=== PATIENT | male | born 1975 | race Caucasian/White ===

== ENCOUNTER 2022-10-03 09:00 | Emergency (ER) | payer OTHER, SELFPAY ==
--- NOTE | ~2022-10-03 | XR_ITS ---
EXAMINATION: XR chest 2V DATE: 10/03/2022 09:59 INDICATION: Cough and congestion. TECHNIQUE: Frontal and lateral views of the chest were obtained. COMPARISON: None. FINDINGS: There is mild atelectasis in the lower lung zones. No pleural effusion or pneumothorax. The heart size is normal. IMPRESSION: 1. Mild atelectasis in the lower lung zones. Reviewed, dictated and finalized at location A.
--- NOTE | 2022-10-03 09:15 | ED.EAR ---
HPI - Ear Problem General Chief complaint: Upper Respiratory Infection Stated complaint: rt ear discomfort,sinus pressure Source: patient Mode of arrival: ambulatory Limitations: no limitations History of Present Illness HPI Narrative: Patient is a 47-year-old male that presents with right ear pain/fullness, congestion, cough since Saturday. Patient states he had a primary care provider appointment and they palpated his salivary stone causing symptoms start. Patient also reports chronic chest pain for 3 weeks, has a cardiology appointment on Saturday. Reports he feels like he has wheezing at the end of his exhale. Reports fever chills and 1 episode of vomiting on Saturday. Has had productive cough with green/yellow/bloody mucus. Denies shortness of breath unless having a coughing fit. Related Data Home Medications Medication Instructions Recorded Confirmed cetirizine 10 mg tablet mg 10/03/22 clindamycin phosphate 1 % lotion topical 10/03/22 gabapentin 600 mg tablet mg 10/03/22 lisinopril 10 mg tablet mg 10/03/22 selenium sulfide 2.5 % lotion topical 10/03/22 testosterone cypionate 200 mg/mL mg 10/03/22 intramuscular oil zolpidem 12.5 mg tablet,extended mg PO 10/03/22 release,multiphase Allergies Allergy/AdvReac Type Severity Reaction Status Date / Time No Known Allergies Allergy Unknown Uncoded 10/03/22 09:26 Review of Systems Review of Systems: All systems reviewed & are unremarkable except as noted in HPI and below Constitutional: Constitutional: Denies body ache(s), Reports chills, Denies fatigue, Reports fever(s), Denies headache(s), Denies malaise and Denies weakness Eyes: Eyes: Denies blurry vision, Denies itchy eyes and Denies loss of vision ENT: Reports otalgia, Denies headache(s), Reports nasal congestion, Reports sinus pain, Reports sinus pressure and Denies sore throat Cardiovascular: Cardiovascular: Denies chest pain, Denies irregular heart rhythm and Denies dyspnea Respiratory: Respiratory: Reports chest congestion, Reports cough, Reports pain with cough and Denies dyspnea Gastrointestinal: Gastrointestinal: Denies abdominal pain, Denies diarrhea, Denies nausea and Reports vomiting Musculoskeletal: Musculoskeletal: Denies back pain, Denies myalgias and Denies arthralgias Integumentary/Breasts: Skin/Breast: Denies pruritus and Denies rash Neurologic: Denies headache(s), Denies loss of vision and Denies weakness Psychiatric: Psychiatric: Reports no additional psychiatric complaints Endocrine: Endocrine: Denies fatigue Allergic/Immunologic: Allergic/Immunologic: Denies itchy eyes PMFSH Comments At time of signature, agree with nursing past medical, surgical, social and family history. There is no relevant family history pertinent to the presenting complaint. Exam Const: General: cooperative, healthy appearing, comfortable, no acute distress and well nourished Nutritional Appearance: well nourished Orientation/consciousness: patient oriented x3 Limitations: no limitations HENMT: Head: normal to inspection, normocephalic and atraumatic Ears: hearing grossly normal bilaterally, external ears normal, TM's normal bilaterally, EAC's normal and no periauricular adenopathy Face/Nose/Sinus: Normal external nose present, Abnormal mucous membranes and turbinates present erythematous bilateral and diffuse, normal facial exam, sinuses nontender and face symmetric Face and sinus: normal facial exam, sinuses nontender and face symmetric Mouth: Yes Normal oral and palatal mucosa present, Yes lip normal, Yes tongue normal, Yes oropharynx normal, Yes moist mucous membranes and Yes Abnormal salivary glands and ducts right Coleman's (submandibular) mass hard and fixed Teeth and gingiva: dentition normal Throat: tonsils normal, uvula midline, posterior oropharynx abnormal erythema and postnasal drainage Eyes: General: appearance normal, both eyes and all related structures Alignment and Position: alignmen
[2022-10-03 09:24] VITALS: BP 146/85; PULSE 102; RESP 16; TEMP 37.3; O2SAT 98
== END 2022-10-03 10:28 | disposition home or self-care (01) ==
PROVIDERS: Emergency Provider Nurse Practitioner Family
DX: J06.9 Acute upper respiratory infection, unspecified (principal); R05.9 Cough, unspecified; M94.0 Chondrocostal junction syndrome [Tietze]
CPT/HCPCS: 71046; 99213; G0463

== ENCOUNTER → 2022-11-13 10:53 | Outpatient (CLI) | payer OTHER, SELFPAY ==
--- NOTE | ~2022-11-13 | MR_ITS ---
EXAMINATION: MR thoracic spine wo con DATE: 11/13/2022 11:33 INDICATION: Chronic low back pain. Degenerative disc disease. TECHNIQUE: Magnetic resonance imaging (MRI) of the thoracic spine was performed without intravenous c ontrast. COMPARISON: None FINDINGS: There is 3 degrees dextrocurvature of thoracic spine. There is mild chronic anterior wedgin g of T5 vertebral body. There are Schmorl's nodes from T5-T6 through T12-L1. There is mildly decrease d disc height at T5-T6 and T6-T7. At T5-T6, there is a right central protrusion with mild central can al stenosis. At T11-T12, there is a central protrusion. There is multilevel facet joint osteoarthriti s, severe bilaterally at T4-T5. On the right, there is mild neural foraminal stenosis at T4-T5 and T8 -T9. On the left, there is mild neural foraminal stenosis at T4-T5. The spinal cord signal intensity is normal. IMPRESSION: 1. Mild thoracic spondylosis. Reviewed, dictated and finalized at location A.
== END ==
DX: M54.6 Pain in thoracic spine (principal); M43.04 Spondylolysis, thoracic region
CPT/HCPCS: 72146

== ENCOUNTER 2023-07-17 12:24 | Emergency (ER) | payer OTHER, SELFPAY ==
--- NOTE | 2023-07-17 12:27 | ED.URI ---
HPI - URI/Sore Throat General Chief Complaint: Upper Respiratory Infection Stated Complaint: Cough , Asthma Attack, Dizzy, Light Headed Time Seen by Provider: 07/17/23 12:27 Source: patient Mode of arrival: ambulatory Limitations: no limitations History of Present Illness HPI Narrative: Cruzito is a 48-year-old male patient presenting to the clinic today with complaints of cough, dizziness, wheezing, and lightheadedness x1.5 weeks. He reports he is coughing so hard at times that is causing him to be short of breath and lightheaded. States he is having some clear nasal drainage. Denies any fever or chills. Reports that his children have been sick with colds for the past couple weeks. History of asthma. MD elicited complaint: sore throat and nasal congestion Related Data Home Medications Medication Instructions Recorded Confirmed cetirizine 10 mg tablet 10 mg PO DAILY 10/03/22 07/17/23 lisinopril 10 mg tablet 10 mg PO DAILY 10/03/22 07/17/23 testosterone cypionate 200 mg/mL 200 mg IM WEEKLY 10/03/22 07/17/23 intramuscular oil zolpidem 12.5 mg tablet,extended 12.5 mg PO DAILY 10/03/22 07/17/23 release,multiphase albuterol sulfate 90 mcg/actuation 2 puff inhalation PRN PRN 07/17/23 07/17/23 aerosol inhaler Shortness Of Breath Or Wheezing budesonide 160 mcg-glycopyr 9 2 inh inhalation DAILY 07/17/23 07/17/23 mcg-formot 4.8 mcg/actuation HFA inhaler ([employer]) duloxetine 60 mg capsule,delayed 60 mg PO DAILY 07/17/23 07/17/23 release eszopiclone 3 mg tablet 3 mg PO DAILY 07/17/23 07/17/23 montelukast 10 mg tablet 10 mg PO HS 07/17/23 07/17/23 Allergies Allergy/AdvReac Type Severity Reaction Status Date / Time No Known Allergies Allergy Unknown Uncoded 07/17/23 12:26 Review of Systems Review of Systems: Pertinent positives per HPI. Patient denies any fever, chills, rash, headache, visual changes, chest pain, palpitations, nausea, vomiting, diarrhea, constipation, abdominal pain, or any urinary issues. PMFSH Comments At the time of my signature, I reviewed and agree with the nursing past medical, surgical, social, and family history. There is no relevant family history pertinent to the patient complaint. Exam Narrative: General: Well-developed, obese, in no apparent distress Head: Normocephalic, atraumatic Eyes: Pupils equally round and reactive to light bilaterally, EOM intact, sclera and conjunctive clear, no discharge, lids normal Ears: TMs intact and congested, ear canals clear, no drainage, grossly hearing normal. Nose: Nares patent, clear nasal discharge, mild inflammation, no sinus tenderness. Mouth: Oral pharynx without lesions or masses, good dentition, MMM. Neck: Supple, trachea midline, no enlargement of anterior or posterior cervical nodes, no thyroid masses or goiter palpable. Cardio: Regular rate and rhythm, s1 and s2 normal, no murmur appreciated. Resp: Clear to auscultation bilaterally, no rhonchi, rales, wheezing or rubs Course Course Emergency Course: Portions of this record may have been created with voice recognition software. Level of Care: Express Care Visit Vital Signs Vital signs: Vital signs reviewed MDM - URI/Sore Throat MDM Narrative Medical decision making narrative: At the time of visit patient is resting comfortably on the exam table. Patient appears to be nontoxic. I suspect patient has acute bronchitis. Prescription for prednisone was sent to the pharmacy. Supportive measures were discussed with the patient and they voiced understanding discharge instructions and agrees to treatment plan. Return precautions reviewed Differential Diagnosis Differential diagnosis: Likely upper respiratory infection, otitis media, sinusitis, viral infection, bronchitis, influenza, pharyngitis and other (COVID) Discharge Plan Discharge Clinical Impression: Bronchitis Patient Disposition: Home, Self-Care Condition: Stable Instructions: Antibio
[2023-07-17 12:32] VITALS: BP 134/88; PULSE 95; RESP 18; TEMP 36.7; O2SAT 97
== END 2023-07-17 12:42 | disposition home or self-care (01) ==
PROVIDERS: Emergency Provider Nurse Practitioner Family
DX: J40 Bronchitis, not specified as acute or chronic (principal); I10 Essential (primary) hypertension; J45.909 Unspecified asthma, uncomplicated
CPT/HCPCS: 99213; G0463

== ENCOUNTER 2023-09-28 10:18 | Emergency (ER) | payer OTHER, SELFPAY ==
--- NOTE | 2023-09-28 10:36 | ED.URI ---
HPI - URI/Sore Throat General Chief Complaint: Upper Respiratory Infection Stated Complaint: Rt Ear Irritation,Sore Throat,Congestion Time Seen by Provider: 09/28/23 10:35 Source: patient, RN notes reviewed and old records reviewed Mode of arrival: ambulatory Limitations: no limitations History of Present Illness HPI Narrative: 48-year-old male presents to the [facility] with a sore throat and right ear pain since Saturday. Has had sinus congestion. Has multiple kids at home positive for strep Onset (ago): day(s) (3) Treatments prior to arrival: none Related Data Home Medications Medication Instructions Recorded Confirmed testosterone cypionate 200 mg/mL 200 mg IM WEEKLY 10/03/22 07/17/23 intramuscular oil zolpidem 12.5 mg tablet,extended 12.5 mg PO DAILY 10/03/22 07/17/23 release,multiphase albuterol sulfate 90 mcg/actuation 2 puff inhalation PRN PRN 07/17/23 07/17/23 aerosol inhaler Shortness Of Breath Or Wheezing budesonide 160 mcg-glycopyr 9 2 inh inhalation DAILY 07/17/23 07/17/23 mcg-formot 4.8 mcg/actuation HFA inhaler ([employer]tri [employer]osphere) eszopiclone 3 mg tablet 3 mg PO DAILY 07/17/23 07/17/23 clindamycin phosphate 1 % lotion topical 09/28/23 09/28/23 ketoconazole 2 % shampoo topical 09/28/23 Allergies Allergy/AdvReac Type Severity Reaction Status Date / Time No Known Allergies Allergy Unknown Uncoded 09/28/23 10:46 Review of Systems Review of Systems: All systems reviewed & are unremarkable except as noted in HPI and below Constitutional: Constitutional: Reports no additional constitutional complaints Eyes: Eyes: Reports no additional eye complaints ENT: Reports as per HPI, Reports otalgia and Reports sore throat Cardiovascular: Cardiovascular: Reports no additional cardiovascular complaints, Denies chest pain and Denies dyspnea Respiratory: Respiratory: Reports no additional respiratory complaints, Denies chest congestion, Denies cough and Denies dyspnea Gastrointestinal: Gastrointestinal: Reports no additional gastrointestinal complaints, Denies abdominal pain, Denies nausea and Denies vomiting Musculoskeletal: Musculoskeletal: Reports no additional musculoskeletal complaints Integumentary/Breasts: Skin/Breast: Reports system reviewed and no additional complaints, except as docu Neurologic: Reports system reviewed and no additional complaints, except as documented Psychiatric: Psychiatric: Reports no additional psychiatric complaints Allergic/Immunologic: Allergic/Immunologic: Reports no additional allergic/immunologic complaints PMFSH Comments At the time of my signature, I reviewed and agree with the nursing past medical, surgical, social, and family history. There is no relevant family history pertinent to the patient complaint. Exam Const: General: cooperative, healthy appearing, comfortable, no acute distress, well developed, alert and well nourished Nutritional Appearance: well nourished and obese Orientation/consciousness: patient oriented x3 Limitations: no limitations HENMT: Head: normal to inspection Ears: hearing grossly normal bilaterally, external ears normal, EAC's normal and TM abnormal with fluid behind the TM bilateral Face/Nose/Sinus: Normal external nose present, Normal nares present, Normal nasal mucous membranes and turbinates present, normal facial exam and face symmetric Face and sinus: normal facial exam and face symmetric Mouth: Yes Normal oral and palatal mucosa present, Yes lip normal and Yes moist mucous membranes Throat: posterior oropharynx normal, uvula midline, postnasal drainage and no uvular edema Eyes: General: appearance normal, both eyes and all related structures Alignment and Position: alignment normal Periorbital: periorbital findings normal Pupils: Equal, round and reactive pupils present EOM: EOMs intact bilaterally Neck: Neck: normal visual inspection, full ROM, no lymphadenopathy and no meningeal signs Chest: Chest palpation & i
[2023-09-28 10:38] VITALS: BP 135/86; PULSE 85; RESP 18; TEMP 36.3; O2SAT 98
== END 2023-09-28 11:25 | disposition home or self-care (01) ==
PROVIDERS: Emergency Provider Nurse Practitioner
DX: J02.0 Streptococcal pharyngitis (principal); I10 Essential (primary) hypertension; J45.909 Unspecified asthma, uncomplicated
CPT/HCPCS: 87880; 99213; G0463

== ENCOUNTER 2023-10-08 10:38 | Emergency (ER) | payer OTHER, SELFPAY ==
--- NOTE | 2023-10-08 10:40 | ED.URI ---
HPI - URI/Sore Throat General Chief Complaint: Upper Respiratory Infection Stated Complaint: Ear and Sinus Pain Time Seen by Provider: 10/08/23 10:40 Source: patient Mode of arrival: ambulatory Limitations: no limitations History of Present Illness HPI Narrative: Cruzito is a 48-year-old male patient presenting to the clinic today with complaints of ear and sinus congestion times 12 days. He reports he is coughing up green and yellow phlegm. Has a lot of sinus pressure and left ear pain. Was seen 10 days ago in the clinic and diagnosed with strep and finished up amoxicillin. States he is still having the above symptoms. MD elicited complaint: nasal congestion Related Data Home Medications Medication Instructions Recorded Confirmed testosterone cypionate 200 mg/mL 200 mg IM WEEKLY 10/03/22 10/08/23 intramuscular oil zolpidem 12.5 mg tablet,extended 12.5 mg PO DAILY 10/03/22 10/08/23 release,multiphase albuterol sulfate 90 mcg/actuation 2 puff inhalation PRN PRN 07/17/23 10/08/23 aerosol inhaler Shortness Of Breath Or Wheezing budesonide 160 mcg-glycopyr 9 2 inh inhalation DAILY 07/17/23 10/08/23 mcg-formot 4.8 mcg/actuation HFA inhaler ([employer]) eszopiclone 3 mg tablet 3 mg PO DAILY 07/17/23 10/08/23 benzoyl peroxide 5 % topical 1 applic topical DAILY 10/08/23 10/08/23 cleanser cetirizine 10 mg tablet 10 mg PO DAILY 10/08/23 10/08/23 doxycycline hyclate 20 mg tablet 20 mg PO BID 10/08/23 10/08/23 duloxetine 60 mg capsule,delayed 60 mg PO DAILY 10/08/23 10/08/23 release lisinopril 10 mg tablet 10 mg PO DAILY 10/08/23 10/08/23 montelukast 10 mg tablet 10 mg PO HS 10/08/23 10/08/23 needle (disp) 18 G 18 gauge x 1 10/08/23 10/08/23 (BD Regular Bevel [place]) syringe with needle 3 mL 21 gauge 10/08/23 10/08/23 x 1 1/2 (BD Luer-Mike Syringe) Allergies Allergy/AdvReac Type Severity Reaction Status Date / Time No Known Allergies Allergy Unknown Uncoded 10/08/23 10:40 Review of Systems Review of Systems: Pertinent positives per HPI. Patient denies any fever, chills, rash,visual changes, dizziness, cough, shortness of breath, chest pain, palpitations, nausea, vomiting, diarrhea, constipation, abdominal pain, or any urinary issues. PMFSH Comments At the time of my signature, I reviewed and agree with the nursing past medical, surgical, social, and family history. There is no relevant family history pertinent to the patient complaint. Exam Narrative: General: Well-developed, well nourished, in no apparent distress Head: Normocephalic, atraumatic Eyes: Pupils equally round and reactive to light bilaterally, EOM intact, sclera and conjunctive clear, no discharge, lids normal Ears: Right TMs intact and clear, left TM intact, bulging, red, ear canals clear, no drainage, grossly hearing normal. Nose: Nares patent, green nasal discharge, moderate inflammation, frontal and maxillary sinus tenderness. Mouth: Oral pharynx red without lesions or masses, good dentition, MMM. Neck: Supple, trachea midline, no enlargement of anterior or posterior cervical nodes, no thyroid masses or goiter palpable. Cardio: Regular rate and rhythm, s1 and s2 normal, no murmur appreciated. Resp: Clear to auscultation bilaterally, no rhonchi, rales, wheezing or rubs Course Course Emergency Course: Portions of this record may have been created with voice recognition software. Level of Care: Express Care Visit Vital Signs Vital signs: Vital signs reviewed MDM - URI/Sore Throat MDM Narrative Medical decision making narrative: At the time of visit patient is resting comfortably on the exam table. Patient appears to be nontoxic. Plan: I suspect patient has acute bacterial rhinosinusitis left otitis media. Prescription for cefdinir and prednisone was sent to the pharmacy. Supportive measures were discussed with the patient and they voiced understanding discharge instructions and agrees to treatm
[2023-10-08 10:49] VITALS: BP 140/97; PULSE 85; RESP 16; TEMP 36.5; O2SAT 97
== END 2023-10-08 11:05 | disposition home or self-care (01) ==
PROVIDERS: Emergency Provider Nurse Practitioner Family
DX: J01.80 Other acute sinusitis (principal); B96.89 Other specified bacterial agents as the cause of diseases classified elsewhere; H66.92 Otitis media, unspecified, left ear
CPT/HCPCS: 99213; G0463

== ENCOUNTER 2023-12-06 18:46 | Emergency (ER) | payer OTHER, SELFPAY ==
[2023-12-06 19:08] VITALS: BP 142/84; PULSE 94; RESP 20; TEMP 37.1; O2SAT 97
--- NOTE | 2023-12-06 19:09 | ED.URI ---
HPI - URI/Sore Throat General Chief Complaint: Upper Respiratory Infection Stated Complaint: bronchitis symptoms Time Seen by Provider: 12/06/23 19:11 Source: patient and RN notes reviewed Mode of arrival: ambulatory Limitations: no limitations History of Present Illness HPI Narrative: 48-year-old male presents with concern for 2 week history of productive cough that gets worse when he lays down. Reports sore throat, sinus pain. He reports he last used his albuterol inhaler yesterday. Reports history of asthma. MD elicited complaint: cough and nasal congestion Related Data Home Medications Medication Instructions Recorded Confirmed testosterone cypionate 200 mg/mL 200 mg IM WEEKLY 10/03/22 12/06/23 intramuscular oil albuterol sulfate 90 mcg/actuation 2 puff inhalation PRN Shortness Of 07/17/23 12/06/23 aerosol inhaler Breath Or Wheezing budesonide 160 mcg-glycopyr 9 2 inh inhalation DAILY 07/17/23 12/06/23 mcg-formot 4.8 mcg/actuation HFA inhaler ([employer]) eszopiclone 3 mg tablet 3 mg PO DAILY 07/17/23 12/06/23 benzoyl peroxide 5 % topical 1 applic topical DAILY 10/08/23 12/06/23 cleanser cetirizine 10 mg tablet 10 mg PO DAILY 10/08/23 12/06/23 doxycycline hyclate 20 mg tablet 20 mg PO BID 10/08/23 12/06/23 duloxetine 60 mg capsule,delayed 60 mg PO DAILY 10/08/23 12/06/23 release lisinopril 10 mg tablet 10 mg PO DAILY 10/08/23 12/06/23 montelukast 10 mg tablet 10 mg PO HS 10/08/23 12/06/23 needle (disp) 18 G 18 gauge x 1 10/08/23 10/08/23 (BD Regular Bevel [place]) syringe with needle 3 mL 21 gauge 10/08/23 10/08/23 x 1 1/2 (BD Luer-Mike Syringe) Allergies Allergy/AdvReac Type Severity Reaction Status Date / Time No Known Allergies Allergy Unknown Uncoded 12/06/23 19:07 Review of Systems Review of Systems: CONSTITUTIONAL: Denies malaise, chills, sweats, or fever. EYES: Denies visual changes, redness, or discharge. ENT: Reports rhinorrhea, congestion, sinus pain, and sore throat. CARDIOVASCULAR: Denies chest pain, palpitations, or edema. RESPIRATORY: Reports productive cough. Denies dyspnea. GASTROINTESTINAL: Denies abdominal pain, nausea, vomiting, diarrhea SKIN: Denies rash or itching. MUSCULOSKELETAL: Denies myalgia. NEUROLOGIC: Denies headache. All systems reviewed & are unremarkable except as noted in HPI and below PMFSH Comments At time of signature, agree with nursing past medical, surgical, social and family history. There is no relevant family history pertinent to the presenting complaint Exam Narrative: GENERAL: Well-appearing, well-nourished, and in no acute distress. HEAD: Normocephalic EYES: PERRLA, conjunctivae clear ENT: Nares clear, turbinates edematous and erythematous. Mucous membranes moist. TM pearly david with dull light reflex bilaterally; no tragal tenderness. Oropharynx not erythematous without lesions. Tonsils not enlarged and without exudate, no drooling, no hoarseness, no trismus, uvula midline. NECK: Supple. No lymphadenopathy CHEST: Scattered expiratory wheeze, otherwise Clear to auscultation, breath sounds equal. No rhonchi, rales, or stridor. No respiratory distress, speaks in full sentences. HEART: Regular rate and rhythm. No murmur heard. SKIN: Warm, dry, no rash. NEURO: Alert and oriented x3. PSYCH: Normal mood and affect Course Course Emergency Course: Patient is aware of diagnosis, understands and agrees to treatment plan. Anticipatory guidance given. Patient agrees to follow-up as directed and is aware of reasons to seek care at the emergency department. Portions of this record may have been created with voice recognition software Level of Care: Express Care Visit Vital Signs Vital signs: Reviewed. MDM - URI/Sore Throat MDM Narrative Medical decision making narrative: Differential diagnosis considered: Matthews virus, strep pharyngitis, allergic rhinitis, upper respiratory tract infection, sinusitis, rhinosinusitis, nasopha
== END 2023-12-06 19:24 | disposition home or self-care (01) ==
PROVIDERS: Emergency Provider Nurse Practitioner
DX: J32.9 Chronic sinusitis, unspecified (principal); J40 Bronchitis, not specified as acute or chronic; I10 Essential (primary) hypertension; J44.9 Chronic obstructive pulmonary disease, unspecified
CPT/HCPCS: 99213; G0463

== ENCOUNTER 2024-02-21 07:00 | Outpatient (CLI) | payer OTHER, SELFPAY ==
--- NOTE | ~2024-02-21 | MR_ITS ---
MRI of the left ankle Clinical history: Pain Technique: Coronal proton-density and proton-density fat-sat images, axial proton-density and proton- density fat-sat images, and sagittal proton-density and proton-density fat-sat images were acquired. Findings: Syndesmotic ligaments are intact. Anterior and posterior talofibular ligaments are intact. Calcaneofibular ligament is hyperintense, probably intact. Deltoid ligament is intact. Medial flexor tendons, peritoneal tendons, anterior extensor tendons, and Achilles tendon are intact. There is moderate tendinosis of the distal tibialis posterior tendon with type I os navicular presen t. There is no osteochondral lesion of the talar dome. Bone marrow signals and joint spaces are intact. No soft tissue mass or fluid collection seen. Plantar fascia intact. Impression: Possible calcaneofibular ligament sprain, which is mildly hyperintense, but intact. Moderate tendinosis of the distal tibialis posterior tendon, with type I os navicular. Reviewed, dictated and finalized at location . Impression: Possible calcaneofibular ligament sprain, which is mildly hyperintense, but int act. Moderate tendinosis of the distal tibialis posterior tendon, with type I os chemo icular.
== END 2024-02-21 07:01 | disposition home or self-care (01) ==
LOC: MICIMG 07:02
PROVIDERS: Visit Provider Physician Assistant
DX: M76.822 Posterior tibial tendinitis, left leg (principal); Q66.89 Other specified congenital deformities of feet
CPT/HCPCS: 73721

== ENCOUNTER 2024-04-14 09:19 | Emergency (ER) | payer OTHER, SELFPAY ==
--- NOTE | ~2024-04-14 | XR_ITS ---
EXAMINATION: XR hip RT 2V w AP pelvis DATE: 04/14/2024 10:36 INDICATION: Pelvic and right hip pain post fall 2 days prior TECHNIQUE: Anteroposterior view of the pelvis and anteroposterior and frog leg lateral views of the r ight hip were obtained. COMPARISON: None. FINDINGS: Bone alignment is normal. No fracture. Bilateral hip and sacroiliac joint spaces are relatively prese rved. Soft tissues are unremarkable. IMPRESSION: 1. No acute osseous abnormality. Reviewed, dictated and finalized at location B. [employer]
[2024-04-14 09:40] VITALS: BP 135/90; PULSE 89; RESP 16; TEMP 36.4; O2SAT 98
--- NOTE | 2024-04-14 10:06 | ED.GENADULT ---
HPI - General Adult General Chief complaint: Back Pain/Injury Stated complaint: Lower Back and RT Hip Pain Time Seen by Provider: 04/14/24 10:06 Source: patient, RN notes reviewed and old records reviewed Mode of arrival: ambulatory Limitations: no limitations History of Present Illness HPI narrative: 49-year-old male presents to [facility] with right lower back and right hip pain. Patient states that he fell and broke his left ankle on Saturday, 2 days ago. Has been using crutches. Is reporting right hip discomfort. Reports that he has been taking Tylenol and ibuprofen Patient was seen at [facility] in [place]. Related Data Home Medications Medication Instructions Recorded Confirmed testosterone cypionate 200 mg/mL 200 mg IM WEEKLY 10/03/22 04/14/24 intramuscular oil albuterol sulfate 90 mcg/actuation 2 puff inhalation PRN Shortness Of 07/17/23 04/14/24 aerosol inhaler Breath Or Wheezing budesonide 160 mcg-glycopyr 9 2 inh inhalation DAILY 07/17/23 04/14/24 mcg-formot 4.8 mcg/actuation HFA inhaler (DripDrop) benzoyl peroxide 5 % topical 1 applic topical DAILY 10/08/23 04/14/24 cleanser cetirizine 10 mg tablet 10 mg PO DAILY 10/08/23 04/14/24 duloxetine 60 mg capsule,delayed 60 mg PO DAILY 10/08/23 04/14/24 release lisinopril 10 mg tablet 10 mg PO DAILY 10/08/23 04/14/24 montelukast 10 mg tablet 10 mg PO 10/08/23 04/14/24 needle (disp) 18 G 18 gauge x 1 10/08/23 04/14/24 (BD Regular Bevel Pukwana) syringe with needle 3 mL 21 gauge 10/08/23 04/14/24 x 1 1/2 (BD Luer-Mike Syringe) carbamazepine 200 mg tablet 200 mg DIRECTED 04/14/24 04/14/24 zolpidem 10 mg tablet 10 mg DIRECTED 04/14/24 04/14/24 Allergies Allergy/AdvReac Type Severity Reaction Status Date / Time No Known Allergies Allergy Unknown Uncoded 12/06/23 19:07 Review of Systems Review of Systems: All systems reviewed & are unremarkable except as noted in HPI and below Constitutional: Constitutional: Reports no additional constitutional complaints ENT: Reports system reviewed and no additional complaints, except as documented Cardiovascular: Cardiovascular: Reports no additional cardiovascular complaints, Denies chest pain and Denies dyspnea Respiratory: Respiratory: Reports no additional respiratory complaints, Denies chest congestion, Denies cough and Denies dyspnea Gastrointestinal: Gastrointestinal: Reports no additional gastrointestinal complaints, Denies abdominal pain, Denies nausea and Denies vomiting Musculoskeletal: Musculoskeletal: Reports as per HPI, Reports back pain, Reports arthralgias and Reports joint swelling Integumentary/Breasts: Skin/Breast: Reports system reviewed and no additional complaints, except as docu PMFSH Comments At the time of my signature, I reviewed and agree with the nursing past medical, surgical, social, and family history. There is no relevant family history pertinent to the patient complaint. Exam Const: General: cooperative, healthy appearing, comfortable, no acute distress, well developed, alert and well nourished Nutritional Appearance: well nourished Orientation/consciousness: patient oriented x3 Limitations: no limitations HENMT: Head: normal to inspection Ears: hearing grossly normal bilaterally and external ears normal Face/Nose/Sinus: Normal external nose present, normal facial exam and face symmetric Face and sinus: normal facial exam and face symmetric Eyes: General: appearance normal, both eyes and all related structures Alignment and Position: alignment normal Periorbital: periorbital findings normal Neck: Neck: normal visual inspection, full ROM, no lymphadenopathy and no meningeal signs Chest: Chest palpation & inspection: normal inspection of the chest Resp: Effort & Inspection: normal respiratory effort and able to speak in complete sentences Auscultation: clear to auscultation bilaterally, no crackles, no rales, no rhonchi and no wheezes Cardio: Rate: regular rate Back/Spine/Pelvis: Back: back tenderness (Right lower, lateral hip) Skin: General skin exam: normal color and no rashes or lesions noted Lesions: no lesions Rashes: no rashes Wounds: no wounds Neuro: General: patient oriented x3, tone normal, moves all extremities and no meningeal signs Cognition (Neuro): normal cognition Speech: normal speech Gait exam (Neuro): Normal gait present Extrem: General: normal to inspection, full ROM and capillary refill normal Psych: Appearance: grossly normal and well kempt Mental Status: mental status grossly normal Speech and movement: Normal speech and movement present and Clear speech present Affect: normal affect Attitude: cooperative Course Course Level of Care: Express Care Visit Vital Signs Vital signs: Vital Signs Temperature 97.5 F L 04/14/24 09:40 Pulse Rate 89 04/14/24 09:40 Respiratory Rate 16 04/14/24 09:40 Blood Pressure 135/90 04/14/24 09:40 Pulse Oximetry 98 04/14/24 09:40 Oxygen Delivery Room Air 04/14/24 09:40 Temperature 97.5 F L 04/14/24 09:40 Pulse Rate 89 04/14/24 09:40 Respiratory Rate 16 04/14/24 09:40 Blood Pressure 135/90 04/14/24 09:40 Pulse Oximetry 98 04/14/24 09:40 Oxygen Delivery Room Air 04/14/24 09:40 Reviewed Medical Decision Making MDM Narrative Medical decision making narrative: Patient sitting comfortably in exam room. Nontoxic, vitals stable. Patient in no acute distress Patient presents for right lower back, lateral hip pain. X-ray negative. Patient fell 2 days ago, does have a left fractured foot ankle Patient arrived on crutches. Patient appropriate for outpatient treatment Discharge instructions reviewed with patient, as well as provided in writing per nursing staff. The instructions also include specific and strict return/GO TO THE ER as well as f/u information. All questions have been answered, and the patient deny any further questions with discharge and discharge plan. Some parts of this dictation were generated by voice recognition software and may contain typographical and/or grammatical inaccuracies. Differential Diagnosis Differential Diagnosis: Arthritis, muscle strain, muscle pain Medical Records Medical records reviewed: Yes I reviewed the external patient's medical records. Vital Signs Vital Signs: Vital Signs Temperature 97.5 F L 04/14/24 09:40 Pulse Rate 89 04/14/24 09:40 Respiratory Rate 16 04/14/24 09:40 Blood Pressure 135/90 04/14/24 09:40 Pulse Oximetry 98 04/14/24 09:40 Oxygen Delivery Room Air 04/14/24 09:40 Temperature 97.5 F L 04/14/24 09:40 Pulse Rate 89 04/14/24 09:40 Respiratory Rate 16 04/14/24 09:40 Blood Pressure 135/90 04/14/24 09:40 Pulse Oximetry 98 04/14/24 09:40 Oxygen Delivery Room Air 04/14/24 09:40 Reviewed Lab Data Lab results reviewed: Yes I reviewed the patient's lab results. Labs: Reviewed Imaging Data Radiologist's impression: EXAMINATION: XR hip RT 2V w AP pelvis DATE: 04/14/2024 10:36 INDICATION: Pelvic and right hip pain post fall 2 days prior TECHNIQUE: Anteroposterior view of the pelvis and anteroposterior and frog leg lateral views of the right hip were obtained. COMPARISON: None. FINDINGS: Bone alignment is normal. No fracture. Bilateral hip and sacroiliac joint spaces are relatively preserved. Soft tissues are unremarkable. IMPRESSION: 1. No acute osseous abnormality. Critical Care Time Critical Care Time Critical Care Time: No Discharge Plan Discharge Clinical Impression: Strain of lumbar region, Acute pain of right hip Patient Disposition: Home, Self-Care Condition: Stable Instructions: Antibiotic Form Additional Instructions: Take ibuprofen as directed to decrease inflammation and to help pain. Take Baclofen (muscle relaxer) as directed. Do not drink, drive, operate machinery, or do anything dangerous while taking this medication Exercise:Combine aerobic exercise, like walking or swimming, with specific exercises to keep the muscles in your back and abdomen strong and flexible. Proper Lifting:Be sure to lift heavy items with your legs, not your back. Do not bend over to pick something up. Keep your back straight and bend at your knees. Weight:Maintain a healthy weight. Being overweight puts added stress on your lower back. Avoid Smoking:Both the smoke and the nicotine cause your spine to age faster than normal. Proper Posture:Good posture is important for avoiding future problems. A therapist can teach you how to safely stand, sit, and lift. Use warm moist heat to help with pain. Using topical such as Biofreeze, Jesse-Langston or Aspercreme can also help Follow up with Primary provider in 2-3 days, This may become a chronic condition and they will be the one to help manage your pain and order additional testing. Go to the nearest ER if you develop problems with bladder/bowel function, weakness or loss of feeling in one or both of your legs. Patient Language: Citizen Of [place] Prescriptions: New baclofen 10 mg tablet 10 mg PO TID PRN (Reason: muscle pain) Qty: 10 0RF No Action testosterone cypionate 200 mg/mL oil 200 mg IM WEEKLY albuterol sulfate 90 mcg/actuation HFA aerosol inhaler 2 puff INHALATION QID PRN (Reason: shortness of breath or wheezing) Qty: 8.5 0RF carbamazepine 200 mg tablet 200 mg DIRECTED zolpidem 10 mg tablet 10 mg DIRECTED Breztri Aerosphere 160-9-4.8 mcg/actuation HFA aerosol inhaler 2 inh INHALATION DAILY albuterol sulfate 90 mcg/actuation HFA aerosol inhaler 2 puff INHALATION PRN cetirizine 10 mg tablet 10 mg PO DAILY (DME) needle (disp) 18 G [BD Regular Bevel [place]] 18 gauge x 1 needle MISCELLANEOUS lisinopril 10 mg tablet 10 mg PO DAILY montelukast 10 mg tablet 10 mg PO HS benzoyl peroxide 5 % cleanser 1 applic TOPICAL DAILY (DME) syringe with needle [BD Luer-Mike Syringe] 3 mL 21 gauge x 1 1/2 syringe MISCELLANEOUS duloxetine 60 mg capsule,delayed release(DR/EC) 60 mg PO DAILY Follow-up/Referrals: Anastasia,JESSY Castillo [Primary Care Provider] - 1 Week ([facility] follow-up) Stand Alone Forms: Work/School Release IP Time of Disposition: 10:59
== END 2024-04-14 11:11 | disposition home or self-care (01) ==
PROVIDERS: Emergency Provider Nurse Practitioner; PCP Physician Assistant
DX: S39.012A Strain of muscle, fascia and tendon of lower back, initial encounter (principal); W19.XXXA Unspecified fall, initial encounter; M25.551 Pain in right hip; I10 Essential (primary) hypertension; J44.9 Chronic obstructive pulmonary disease, unspecified
CPT/HCPCS: 73502; 99213; G0463